=== PATIENT | female | born 2000 | race Two or more races ===

== ENCOUNTER 2022-06-15 11:59 | Emergency (ER) | payer OTHER ==
[~2022-06-15] VITALS: Ht 152.4 cm; Wt 88.6 kg
[2022-06-15] MEDS ORDERED: ASPirin 325 MG TAB PO ONE (12:15)
[2022-06-15 12:41] LABS: Basophils # (auto) 0.1 10 ^3/uL (0-0.2); Basophils % (auto) 0.8 % (0.0-2.0); Eosinophils # (auto) 0.1 10 ^3/uL (0-0.8); Eosinophils % (auto) 0.5 % (0.0-7.0); Hematocrit 38.3 % (36.0-46.0); Hemoglobin 12.8 g/dL (12.2-16.2); Lymphocytes # (auto) 1.3 10 ^3/uL (0.4-5.4); Lymphocytes % (auto) 10.8 % (10.0-50.0); Mean Corpuscular Hemoglobin 30.9 pg (28.0-32.0); Mean Corpuscular Hgb Conc. 33.3 g/dL (32.0-36.0); Mean Corpuscular Volume 92.8 fL (80.0-100.0); Monocytes # (auto) 0.9 10 ^3/uL (0-1.3); Monocytes % (auto) 7.5 % (0.0-12.0); Neutrophils # (auto) 9.7 10 ^3/uL (1.6-8.6); Neutrophils % (auto) 80.4 % (37.0-80.0); Nucleated Red Blood Cells % 0.1 %; Red Blood Cells 4.13 10^6/uL (4.0-5.20); Red Cell Distribution Width 13.9 % (11.8-14.3); White Blood Cell 12.1 10^3/uL (4.4-10.8)
[2022-06-15 12:55] LABS: Albumin 2.9 g/dL (3.4-5.0); Calcium 8.7 mg/dL (8.5-10.1); Potassium 4.6 mmol/L (3.5-5.1)
[2022-06-15 12:58] LABS: BUN/Creatinine Ratio 15.2; Bilirubin, Total 0.5 mg/dL (0.2-1.0); Total Protein 6.9 g/dL (6.4-8.2)
[2022-06-15 13:11] LABS: Urine Bacteria MOD /hpf (None Seen); Urine Blood Negative /uL (Negative); Urine Mucus FEW (None Seen); Urine Specific Gravity 1.028 (1.001-1.035); Urine WBC 3 /hpf (0 - 5)
[2022-06-15] MEDS ORDERED: diphenhdrAMINE HCL 50 MG/1 ML VL IV ONE (13:30)
[2022-06-15] MEDS ORDERED: SODIUM CHLORIDE 0.9% 1,000 ML IV ONE (13:30)
[2022-06-15 20:12] VITALS: BP 114/66
== END 2022-06-15 18:50 | disposition short-term general hospital (02) ==
LOC: ER 11:59
DX: O26.891 Other specified pregnancy related conditions, first trimester (principal); R07.89 Other chest pain; Z3A.01 Less than 8 weeks gestation of pregnancy; R10.2 Pelvic and perineal pain; Z20.822 Contact with and (suspected) exposure to COVID-19
CPT/HCPCS: 36415; 80053; 81001; 84484; 84702; 85025; 87426; 93005; 96360; 99285; J7030

== ENCOUNTER 2024-02-08 18:41 | Emergency (ER) | payer MEDICAID, OTHER ==
[~2024-02-08] VITALS: Ht 157.5 cm; Wt 57.9 kg
[2024-02-08 19:30] VITALS: BP 117/82; PULSE 97; RESP 16; O2SAT 98
[2024-02-08] MEDS ORDERED: PRED20TA2 PO (22:50)
[2024-02-08] MEDS ORDERED: AMOX875T4 PO (22:50)
[2024-02-08] MEDS ORDERED: ACYC400T16 PO (22:50)
[2024-02-08] MEDS ORDERED: ARTISOL13 EACHEYE (22:50)
== END 2024-02-08 23:11 | disposition home or self-care (01) ==
LOC: ER 18:41
DX: G51.0 Bell's palsy (principal)
CPT/HCPCS: 70450